=== PATIENT | male | born 1970 | race Caucasian/White ===

== ENCOUNTER 2017-11-16 00:24 | Inpatient (IN) | payer OTHER, MEDICAID ==
[~2017-11-16] VITALS: Ht 170.2 cm; Wt 90.0 kg
[2017-11-16 00:28] VITALS: Ht 170.2 cm; Wt 90.0 kg
[2017-11-16 01:07] LABS: PLATELET COUNT 268 x10^3mcL (130-400); RED CELL DISTRIBUTION WIDTH 12.5 % (11.5-14.5)
[2017-11-16 01:14] LABS: CALCIUM 9.4 mg/dL (8.5-10.1); CARBON DIOXIDE 31.9 mmol/L (21-32); CHLORIDE SERUM 101 mmol/L (98-107); CREATININE SERUM 0.8 mg/dL (0.7-1.3); GFR1 > 60 mL/min; GLUCOSE SERUM 119 mg/dL (74-106); POTASSIUM SERUM 4.1 mmol/L (3.5-5.1); SODIUM SERUM 139 mmol/L (136-145)
[2017-11-16 01:19] LABS: ALKALINE PHOSPHATASE 313 U/L (46-116); ALT/SGPT 56 U/L (16-63); AST/SGOT 36 U/L (15-37); BILIRUBIN TOTAL 0.35 mg/dL (0.20-1.00)
[2017-11-16 01:23] LABS: ALBUMIN 3.2 g/dL (3.4-5.0); TOTAL PROTEIN, SERUM 9.1 g/dL (6.4-8.2)
[2017-11-16] MEDS ORDERED: CLONAZEPAM2 MG GT (02:25)
[2017-11-16] MEDS ORDERED: NATURAL IRON65 MG GT (02:26)
[2017-11-16] MEDS ORDERED: DILANTIN100 MG GT (02:26)
[2017-11-16 02:27] LABS: CHOLESTEROL/HDL RATIO 3.9; MAGNESIUM 1.6 mg/dL (1.8-2.4); PHOSPHOROUS 4.8 mg/dL (2.5-4.9)
[2017-11-16] MEDS ORDERED: HEP5I SC (02:27)
[2017-11-16] MEDS ORDERED: KEPPRA500 MG GT (02:27)
[2017-11-16] MEDS ORDERED: PHARMASSURE VI500 MG GT (02:28)
[2017-11-16] MEDS ORDERED: ACIDOPHILUS LA1 EACH PO (02:28)
[2017-11-16] MEDS ORDERED: MAGNESIUM OXID400 MG GT (02:29)
[2017-11-16] MEDS ORDERED: LEVOTHYROXIN0.075 M2 GT (02:29)
[2017-11-16] MEDS ORDERED: SENNA8.6 M2 GT (02:30)
[2017-11-16] MEDS ORDERED: MIRALAX17 GM GT (02:30)
[2017-11-16] MEDS ORDERED: TERAZOSIN HCL2 MG GT (02:31)
[2017-11-16 02:39] LABS: FREE T4 0.97 ng/dL (0.76-1.46); FREE THYROXINE INDEX 2.4 ug/dL (1.4-4.5); T4(THYROXINE) 8.1 ug/dL (4.7-13.3)
[2017-11-16] MEDS ORDERED: TOPAMAX100 MG GT (02:39)
[2017-11-16] MEDS ORDERED: CRANBERRY450 M1 GT (02:40)
[2017-11-16 02:44] LABS: T3 TOTAL 0.99 ng/mL
[2017-11-16 03:05] VITALS: BP 124/85
[2017-11-16 03:07] VITALS: BP 124/85
[2017-11-16 06:07] LABS: PLATELET COUNT 255 x10^3mcL (130-400); RED CELL DISTRIBUTION WIDTH 13.9 % (11.5-14.5)
[2017-11-16 06:08] LABS: BASOPHIL % 0 % (0-2)
[2017-11-16 06:44] LABS: CALCIUM 9.7 mg/dL (8.5-10.1); CARBON DIOXIDE 31.3 mmol/L (21-32); CHLORIDE SERUM 99 mmol/L (98-107); CREATININE SERUM 0.9 mg/dL (0.7-1.3); GFR1 > 60 mL/min; GLUCOSE SERUM 132 mg/dL (74-106); MAGNESIUM 2.3 mg/dL (1.8-2.4); PHOSPHOROUS 4.8 mg/dL (2.5-4.9); POTASSIUM SERUM 3.9 mmol/L (3.5-5.1); SODIUM SERUM 138 mmol/L (136-145)
[2017-11-16 09:15] VITALS: BP 107/73
[2017-11-16 14:07] VITALS: BP 111/76
[2017-11-16 16:24] VITALS: BP 136/71
[2017-11-16 20:30] VITALS: BP 128/72
[2017-11-17 04:22] VITALS: BP 117/76
[2017-11-17 05:52] LABS: BASOPHIL % 0.4 % (0-2); PLATELET COUNT 272 x10^3mcL (130-400); RED CELL DISTRIBUTION WIDTH 13.7 % (11.5-14.5)
[2017-11-17 06:27] LABS: CALCIUM 9.5 mg/dL (8.5-10.1); CARBON DIOXIDE 29.3 mmol/L (21-32); CHLORIDE SERUM 102 mmol/L (98-107); CREATININE SERUM 1.1 mg/dL (0.7-1.3); GFR1 > 60 mL/min; GLUCOSE SERUM 139 mg/dL (74-106); POTASSIUM SERUM 3.7 mmol/L (3.5-5.1); SODIUM SERUM 141 mmol/L (136-145)
[2017-11-17 09:12] VITALS: BP 132/81
[2017-11-17 12:04] VITALS: BP 131/64
[2017-11-17 16:58] VITALS: BP 117/80
[2017-11-17 21:17] VITALS: BP 128/76
[2017-11-18 05:54] VITALS: BP 112/71
[2017-11-18 06:18] LABS: BASOPHIL % 0.3 % (0-2); CALCIUM 9.6 mg/dL (8.5-10.1); CARBON DIOXIDE 26.9 mmol/L (21-32); CHLORIDE SERUM 104 mmol/L (98-107); CREATININE SERUM 1.1 mg/dL (0.7-1.3); GFR1 > 60 mL/min; GLUCOSE SERUM 136 mg/dL (74-106); PLATELET COUNT 280 x10^3mcL (130-400); POTASSIUM SERUM 3.4 mmol/L (3.5-5.1); RED CELL DISTRIBUTION WIDTH 13.6 % (11.5-14.5); SODIUM SERUM 142 mmol/L (136-145)
[2017-11-18 10:16] VITALS: BP 134/80
[2017-11-18 13:15] VITALS: BP 134/80
[2017-11-18 13:35] VITALS: BP 139/78
== END 2017-11-18 15:18 | DRG 205 ==
LOC: ED 00:24 → DU 01:48
PROVIDERS: Emergency Medicine; Family Medicine
DX: Z43.0 Encounter for attention to tracheostomy (principal); J96.21 Acute and chronic respiratory failure with hypoxia; N17.0 Acute kidney failure with tubular necrosis; F72 Severe intellectual disabilities; E44.0 Moderate protein-calorie malnutrition; E11.9 Type 2 diabetes mellitus without complications; E83.42 Hypomagnesemia; E78.5 Hyperlipidemia, unspecified; E78.1 Pure hyperglyceridemia; E03.9 Hypothyroidism, unspecified; G80.9 Cerebral palsy, unspecified; D64.9 Anemia, unspecified; G40.909 Epilepsy, unspecified, not intractable, without status epilepticus; N40.0 Benign prostatic hyperplasia without lower urinary tract symptoms; F41.9 Anxiety disorder, unspecified; Z93.1 Gastrostomy status; Z68.31 Body mass index [BMI] 31.0-31.9, adult
CPT/HCPCS: 36600; 82962; 83880; 84439; J1644; J2543; J3475; J7030; J7620; Q0092